=== PATIENT | female | born 1995 | race Caucasian/White ===

== ENCOUNTER 2021-01-15 14:12 | Outpatient (CLI) | payer OTHER ==
--- NOTE | 2021-01-15 16:18 | XRAY Report ---
PROCEDURE: Hand 3 View BILAT INDICATIONS: BILATERAL HAND PAIN TECHNIQUE: 3 views of the right and left hand(s) acquired. COMPARISON: None FINDINGS: Bones: No fractures or dislocations. No suspicious bony lesions. No osseous erosive changes. No david nt space narrowing or periarticular osteopenia. Soft tissues: No suspicious soft tissue calcifications. IMPRESSION: No osseous erosive change. Reviewed by: Karey Mack MD, PhD on 01/15/2021 4:17 PM PDT Approved by: Karey Mack MD, PhD on 01/15/2021 4:17 PM PDT Station ID: [id number]
== END 2021-01-15 14:13 | disposition home or self-care (01) ==
LOC: DI 14:12
PROVIDERS: ATTEND Physician Assistant
DX: M79.641 Pain in right hand (principal); M79.642 Pain in left hand

== ENCOUNTER 2021-02-18 12:36 | Outpatient (CLI) | payer OTHER ==
--- NOTE | 2021-02-18 13:15 | XRAY Report ---
PROCEDURE: Ankle 3 View LT INDICATIONS: L ANKLE PX TECHNIQUE: 3 views of the ankle were acquired. COMPARISON: None. FINDINGS: Bones: No fractures or dislocations. Ankle mortise is normally aligned. No suspicious bony lesions . Soft tissues: No tibiotalar joint effusion. Achilles tendon appears normal. IMPRESSION: No significant osseous abnormality. If clinically indicated follow-up radiographs in 10-14 days could be performed. Reviewed by: Nico Davis MD on 02/18/2021 1:13 PM [facility] Approved by: Nico Davis MD on 02/18/2021 1:13 PM [facility] Station ID: [id number]
== END 2021-02-18 23:59 | disposition home or self-care (01) ==
LOC: DI.N 12:36
PROVIDERS: ATTEND Nurse Practitioner
DX: S93.402A Sprain of unspecified ligament of left ankle, initial encounter (principal)

== ENCOUNTER 2021-05-31 10:36 | Emergency (ER) | payer OTHER ==
--- NOTE | 2021-05-31 11:32 | ED Physician Documentation ---
PD HPI HEADACHE - Stated complaint Stated Complaint: SOA/HEAD PX - Chief complaint Chief Complaint: Resp - History obtained from History obtained from: Patient - History of Present Illness Timing - onset: How many days ago (4) Timing - onset during: Light activity Timing - duration: Days (4) Timing - details: Gradual onset (had Moderna COVID vaccine Thursday and developed aches, dyspnea, headache the day after. No hives. Headache and aches have improved reasonably but dyspnea/wheezing persists. NO history of asthma per se. Has had MDI with bronchitis in the past.), Still present Worst headache ever?: No: Worst headache ever? Location: Front Quality: Aching Associated symptoms: Other (main complaint is of dyspnea/wheezing since the vaccine.). No: Fever, Stiff neck, Nausea Contributing factors: Other (symptoms onset day after COVID booster vaccine.). No: Recent illness Review of Systems Constitutional: denies: Fever, Chills Nose: denies: Rhinorrhea / runny nose, Congestion Throat: denies: Sore throat Cardiac: reports: Chest pain / pressure Respiratory: reports: Dyspnea, Wheezing. denies: Cough GI: denies: Nausea, Vomiting, Diarrhea Skin: denies: Rash Neurologic: reports: Generalized weakness. denies: Near syncope PD PAST MEDICAL HISTORY - Past Medical History Cardiovascular: None Respiratory: None, Other (prior spontaneous PTX years ago. ) Endocrine/Autoimmune: None - Present Medications Home Medications: Ambulatory Orders Medication Instructions Recorded Confirmed Albuterol Sulf [Ventolin Hfa 2 - 3 puffs INH Q4HR PRN #1 inhaler 05/31/21 Inhaler] Levonorgestrel-Ethin Estradiol 1 tab PO DAILY 05/31/21 05/31/21 [Leonora-28 Tablet] Levothyroxine Sodium 0.25 mcg PO DAILY 05/31/21 05/31/21 [place] Carbonate 900 mg PO DAILY 05/31/21 05/31/21 Omeprazole 40 mg PO DAILY 05/31/21 05/31/21 Propranolol [Inderal] 90 mg PO DAILY 05/31/21 05/31/21 dexAMETHasone [Decadron] 4 mg PO DAILY #5 tablet 05/31/21 - Allergies Allergies/Adverse Reactions: Allergies Allergy/AdvReac Type Severity Reaction Status Date / Time amoxicillin Allergy Respiratory Verified 05/31/21 10:49 PD ED PE NORMAL - Vitals Vital signs reviewed: Yes - General General: Alert and oriented X 3, No acute distress, Well developed/nourished - HEENT HEENT: Ears normal, Moist mucous membranes, Pharynx benign - Neck Neck: Supple, no meningeal sign, No adenopathy - Cardiac Cardiac: RRR, No murmur - Respiratory Respiratory: No respiratory distress, Clear bilaterally - Abdomen Abdomen: Soft, Non tender - Derm Derm: Normal color, Warm and dry, No rash Results - Vitals Vitals: Vital Signs - 24 hr 05/31/21 05/31/21 05/31/21 10:44 11:07 12:10 Temperature 37.1 C Heart Rate 55 L 48 L 57 L Respiratory 16 18 18 Rate Blood Pressure 137/56 H 105/32 L O2 Saturation 100 99 05/31/21 13:00 Temperature Heart Rate 50 L Respiratory 18 Rate Blood Pressure 107/64 O2 Saturation 99 Oxygen O2 Source Room air - Rads (name of study) chest xray Radiology: Prelim report reviewed (no cardiopulmonary abnormality.), See rad report PD MEDICAL DECISION MAKING - ED course Complexity details: re-evaluated patient (she feels better with ALbuterol MDI. ), considered differential (symptoms time after and relate to getting COVID booster vaccine. ), d/w patient Departure - Departure Disposition: 01 Home, Self Care Clinical Impression: Immunization reaction Qualifiers: Encounter type: initial encounter Qualified Code(s): T50.Z95A - Adverse effect of other vaccines and biological substances, initial encounter Dyspnea Qualifiers: Dyspnea type: shortness of breath Qualified Code(s): R06.02 - Shortness of breath Condition: Stable Record reviewed to determine appropriate education?: Yes Instructions: ED Dyspnea Shortness of Breath Follow-Up: DEVON AVILA PA-C [Primary Care Provider] - Prescriptions: Albuterol Sulf [Ventolin Hfa Inhaler] 2 - 3 puffs INH Q4HR PRN #1 inhaler PRN Reason: Shortness Of Air/Wheezing dexAMETHasone [Decadron] 4 mg PO DAILY #5 tablet Comments: Continue usual medicines. Stay well-hydrated. Tylenol every 4-6 hours as needed for pains. Use an albuterol inhaler 2 to 3 puffs 4 times a day for the next several days to week until you are feeling better. Also Decadron steroid anti-inflammatory daily for the next several days to. This sounds like a inflammatory response to your vaccination causing some reactive airway inflammation. I would anticipate improvement over the next few days. I transmitted your prescription to the [facility] outpatient pharmacy. Discharge Date/Time: 05/31/21 13:18
[2021-05-31] MEDS ORDERED: ALBUTEROL 1 PUFF INH STA (11:49)
[2021-05-31] MEDS ORDERED: CHERRY SYRUP 10 ML UDC PO ONE (11:49)
[2021-05-31] MEDS ORDERED: DEXAMETHASONE 10 MG/ML VIAL PO STA (11:49)
[2021-05-31] MEDS ORDERED: ACETAMINOPHEN 325 MG TABLET PO STA (11:49)
--- NOTE | 2021-05-31 12:33 | XRAY Report ---
PROCEDURE: Chest 1 View X-Ray INDICATIONS: dyspnea for 4 days TECHNIQUE: One view of the chest was acquired. COMPARISON: None. FINDINGS: SUPPORT DEVICES: None. LUNGS/PLEURA: No focal consolidation, pleural effusion or space-occupying pneumothorax. MEDIASTINUM: The cardiomediastinal silhouette is within normal limits. BONES/SOFT TISSUES: No acute abnormality. Dextrocurvature of the thoracic spine. IMPRESSION: 1.No acute cardiopulmonary abnormality. Reviewed by: Dylon Travis MD on 05/31/2021 12:32 PM [facility] Approved by: Dylon Travis MD on 05/31/2021 12:32 PM [facility] Station ID: [id number]
[2021-05-31 13:03] VITALS: BP 107/64
== END 2021-05-31 13:18 | disposition home or self-care (01) ==
LOC: ED 10:36
DX: T88.1XXA Other complications following immunization, not elsewhere classified, initial encounter (principal); R51.9 Headache, unspecified; R06.09 Other forms of dyspnea; M79.10 Myalgia, unspecified site
CPT/HCPCS: 71045; 94664; 99282; 99283; A9270

== ENCOUNTER 2021-08-17 13:49 | Emergency (ER) | payer OTHER ==
[2021-08-17] MEDS ORDERED: ACETAMINOPHEN 500 MG TABLET PO STA (14:02)
[2021-08-17] MEDS ORDERED: HYDROcod/ACETAM 5/325 MG TABLET PO STA (14:02)
--- NOTE | 2021-08-17 14:06 | ED Physician Documentation ---
PD HPI UPPER EXT INJURY - Stated complaint Stated Complaint: L SHOULDER PAIN/LUMP - History obtained from History obtained from: Patient, Family (mom) - Additonal information Additional information: 26-year-old woman with history of Tarlov cysts and DHEA-S abnormality presents with left shoulder pain of days duration with a mass in the supraclavicular area and today pain radiating into the left arm. There was no injury. She denies night sweats. She has had unintentional weight gain recently. Review of Systems Ten Systems: 10 systems reviewed and negative Constitutional: reports: Fatigue (x 6 months). denies: Fever, Chills, Myalgias, Weight Loss, Sweats Nose: denies: Rhinorrhea / runny nose, Congestion GI: reports: Reviewed and negative PD PAST MEDICAL HISTORY - Past Medical History Cardiovascular: None Respiratory: None, Other (prior spontaneous PTX years ago. ) Endocrine/Autoimmune: None - Present Medications Home Medications: Ambulatory Orders Medication Instructions Recorded Confirmed Albuterol Sulf [Ventolin Hfa 2 - 3 puffs INH Q4HR PRN #1 inhaler 05/31/21 08/17/21 Inhaler] Levonorgestrel-Ethin Estradiol 1 tab PO DAILY 05/31/21 08/17/21 [Leonora-28 Tablet] Levothyroxine Sodium 0.25 mcg PO DAILY 05/31/21 08/17/21 [place] Carbonate 900 mg PO QPM 05/31/21 08/17/21 Omeprazole 40 mg PO DAILY 05/31/21 08/17/21 Propranolol [Inderal] 90 mg PO BID 05/31/21 08/17/21 HYDROcod/ACETAM 5/325 [Raymond 5/325] 1 - 2 tab PO Q6H PRN #15 tablet 08/17/21 - Allergies Allergies/Adverse Reactions: Allergies Allergy/AdvReac Type Severity Reaction Status Date / Time amoxicillin Allergy Respiratory Verified 05/31/21 10:49 - Family History Family history: reports: Non contributory PD ED PE NORMAL - Vitals Vital signs reviewed: Yes - General General: Alert and oriented X 3, No acute distress - HEENT HEENT: PERRL, EOMI - Neck Neck: Supple, no meningeal sign, No bony TTP, Other (She appears to have supraclavicular masses bilaterally, left worse than right which are tender. The shoulder itself is nontender.) - Cardiac Cardiac: RRR, No murmur - Respiratory Respiratory: No respiratory distress, Clear bilaterally - Abdomen Abdomen: Non tender - Extremities Extremities: No deformity, No tenderness to palpate, No edema, No calf tenderness / cord, Other (Unable to range the shoulder more than about 90 degrees abduction due to pain) - Neuro Neuro: Alert and oriented X 3, Normal speech Eye Opening: Spontaneous Motor: Obeys Commands Verbal: Oriented GCS Score: 15 - Psych Psych: Normal mood Results - Vitals Vitals: Vital Signs - 24 hr 08/17/21 13:50 Temperature 37.4 C Heart Rate 60 Respiratory 20 Rate Blood Pressure 137/74 H O2 Saturation 100 Oxygen O2 Source Room air - Labs Labs: Laboratory Tests 08/17/21 08/17/21 08/17/21 14:17 14:17 14:17 WBC 10.4 RBC 4.21 Hgb 13.7 Hct 42.6 MCV 101.2 H MCH 32.5 H MCHC 32.2 RDW 11.9 L Plt Count 335 MPV 10.6 Neut # (Auto) 7.4 H Lymph # (Auto) 2.0 [place] # (Auto) 0.8 Eos # (Auto) 0.1 Baso # (Auto) 0.1 Absolute Nucleated RBC 0.00 Nucleated RBC % 0.0 Sodium 137 Potassium 4.4 Chloride 101 Carbon Dioxide 25 Anion Gap 11.0 BUN 13 Creatinine 1.0 Estimated GFR (MDRD) 66 L Glucose 114 H Calcium 9.9 Total Bilirubin 0.8 AST 25 ALT 17 Alkaline Phosphatase 43 Total Protein 7.9 Albumin 4.1 Globulin 3.8 Albumin/Globulin Ratio 1.1 Urine Color Urine Clarity Urine pH Ur Specific [place] Urine Protein Urine Glucose (UA) Urine Ketones Urine Occult Blood Urine Nitrite Urine Bilirubin Urine Urobilinogen Ur Leukocyte Esterase Ur Microscopic Review Urine Culture Comments Urine HCG, Qual Last Dose Date UNKNOWN Last Dose Time UNKNOWN Keddie 0.93 08/17/21 14:37 WBC RBC Hgb Hct MCV MCH MCHC RDW Plt Count MPV Neut # (Auto) Lymph # (Auto) [place] # (Auto) Eos # (Auto) Baso # (Auto) Absolute Nucleated RBC Nucleated RBC % Sodium Potassium Chloride Carbon Dioxide Anion Gap BUN Creatinine Estimated GFR (MDRD) Glucose Calcium Total Bilirubin AST ALT Alkaline Phosphatase Total Protein Albumin Globulin Albumin/Globulin Ratio Urine Color YELLOW Urine Clarity CLEAR Urine pH 6.5 Ur Specific [place] <=1.005 Urine Protein NEGATIVE Urine Glucose (UA) NEGATIVE Urine Ketones NEGATIVE Urine Occult Blood NEGATIVE Urine Nitrite NEGATIVE Urine Bilirubin NEGATIVE Urine Urobilinogen 0.2 (NORMAL) Ur Leukocyte Esterase NEGATIVE Ur Microscopic Review NOT INDICATED Urine Culture Comments NOT INDICATED Urine HCG, Qual NEGATIVE Last Dose Date Last Dose Time Keddie PD MEDICAL DECISION MAKING - ED course ED course: She had prominent supraclavicular musculature or masses. The concern would be for lymphoma and an ultrasound was done without evidence of pathologic ad enopathy. Ultrasound and labs were okay to so presume she just has prominent musculature there and I personally ultrasounded the area to and it just looks like normal subcutaneous tissue. The patient and family were counseled as to the diagnosis and need for follow- up. I counseled the patient with regard to signs and symptoms that would necessitate an urgent reevaluation in the emergency department. They understand they are welcome to return at any time if worse or if not improving as expected. This document was made in part using voice recognition software. While efforts are made to proofread this documents, sound alike and grammatical errors may occur. Departure - Departure Disposition: Home, Self Care Clinical Impression: Shoulder pain, Mass of shoulder region Condition: Good Record reviewed to determine appropriate education?: Yes Instructions: ED Strain Muscle Ext Prescriptions: HYDROcod/ACETAM 5/325 [Raymond 5/325] 1 - 2 tab PO Q6H PRN #15 tablet PRN Reason: Pain Comments: I sent your prescription electronically to [facility] in [place]. Follow-up with your primary care physician this week for recheck. Rest assured that no pathologic lymph nodes were noted on your ultrasound and your lab work is pretty normal with a lithium level of 0.93 which is right where it should be. I am prescribing a short course of narcotic pain medication for you. These are potentially dangerous and addictive medications that should be used carefully. These medications may constipate you. Take an dtrd-ctp-uuxibhz stool softener (docusate) twice daily with plenty of water while taking these medications. If you go 24 hours without a bowel movement, take rqhq-jwn-tyjglhl miralax, per package instructions. Do not drink or drive while taking these medications. If you received narcotic or sedating medications while in the emergency department, do not drive for 24 hours. Store this medication in a safe, secure place and out of reach of children. It is a violation of federal law to give or sell this medication to another person or to use in a manner other than prescribed. The ED will not refill narcotic prescriptions, including prescriptions lost or stolen. To dispose of unwanted medications: 1. [facility] at [address] in [place] has a medication drop box. They accept prescription medications (in pil l form) Thursday through Thursday 9:00 a.m. to 5:00 p.m. 2. [facility] [employer] [facility] accepts prescription medications (in pill form only) for disposal year round. Call for more information. 3. Contact the [facility] for the next [facility] sponsored prescription drug collection event. , [phone], or [phone]; Note that many narcotic pain relievers also contain Tylenol/acetaminophen. Please ensure that your total dose of acetaminophen from all sources does not exceed 3 g (3000 mg) per day. Discharge Date/Time: 08/17/21 15:38
[2021-08-17 14:09] VITALS: BP 137/74
[2021-08-17 14:32] LABS: BASOPHILS # (AUTO) 0.1 10^3/uL (0.0-0.1); BASOPHILS % (AUTO) 0.6 %; EOSINOPHILS # (AUTO) 0.1 10^3/uL (0.0-0.7); EOSINOPHILS % (AUTO) 1.3 %; HCT - HEMATOCRIT 42.6 % (37.0-47.0); HGB - HEMOGLOBIN 13.7 g/dL (12.0-16.0); LYMPHOCYTES % (AUTO) 19.1 %; MEAN CORPUSCULAR HEMOGLOBIN 32.5 pg (27.0-31.0); MEAN CORPUSCULAR HGB CONC 32.2 g/dL (32.0-36.0); MEAN CORPUSCULAR VOLUME 101.2 fL (81.0-99.0); MEAN PLATELET VOLUME 10.6 fL (7.9-10.8); MONOCYTES # (AUTO) 0.8 10^3/uL (0.0-1.0); MONOCYTES % (AUTO) 7.2 %; NEUTROPHILS # (AUTO) 7.4 10^3/uL (1.5-6.6); NEUTROPHILS % (AUTO) 71.5 %; PLT - PLATELET COUNT 335 10^3/uL (130-450); RED BLOOD COUNT 4.21 10^6/uL (4.20-5.40); RED CELL DISTRIBUTION WIDTH 11.9 % (12.0-15.0); WHITE BLOOD COUNT 10.4 x10^3/uL (4.8-10.8)
[2021-08-17 14:42] LABS: ALBUMIN 4.1 g/dL (3.2-5.5); ALBUMIN/GLOBULIN RATIO 1.1 (1.0-2.2); BILIRUBIN,TOTAL 0.8 mg/dL (0.2-1.0); CALCIUM 9.9 mg/dL (8.5-10.3); POTASSIUM 4.4 mmol/L (3.5-5.0); TOTAL PROTEIN 7.9 g/dL (6.7-8.2)
[2021-08-17 14:50] LABS: BILIRUBIN,URINE NEGATIVE (NEGATIVE); GLUCOSE, URINE (UA) NEGATIVE (NEGATIVE); KETONES,URINE (UA) NEGATIVE (NEGATIVE); LEUKOCYTE ESTERASE, URINE NEGATIVE (NEGATIVE); NITRITE,URINE NEGATIVE (NEGATIVE); OCCULT BLOOD,URINE NEGATIVE (NEGATIVE); PH,URINE 6.5 PH (5.0-7.5); PROTEIN,URINE NEGATIVE (NEGATIVE); UROBILINOGEN,URINE 0.2 (NORMAL) E.U./dL (NORMAL)
--- OUTSIDE RECORDS SUMMARY | 2021-08-17 14:54 | EXTERNAL MEDICAL SUMMARY RPT | Continuity of Care Document ---
:1995 Author Organization [facility] Address [address] [place] [address] Phone Care Team Providers Name Role Phone Morenita Fregoso Unavailable Unavailable Allergies No information. Encounters No information. Medications No information. Problems date description facility [id number] Other signs and symptoms in [facility] [id number] [facility] [id number] Other signs and symptoms in [facility] [id number] [facility] Results No information.
--- NOTE | 2021-08-17 14:58 | XRAY Report ---
PROCEDURE: Chest 2 View X-Ray INDICATIONS: Shoulder pain TECHNIQUE: 2 view(s) of the chest. COMPARISON: None. FINDINGS: Surgical changes and devices: None. Lungs and pleura: No pleural effusions or pneumothorax. Lungs are clear. Mediastinum: Mediastinal contours are normal. Heart size is normal. Bones and chest wall: No suspicious bony abnormalities. Soft tissues appear unremarkable. Convex r ight thoracolumbar scoliosis IMPRESSION: No acute cardiopulmonary findings Thoracolumbar dextroscoliosis Reviewed by: Chace Ureña MD on 08/17/2021 1:56 PM [facility] Approved by: Chace Ureña MD on 08/17/2021 1:56 PM [facility] Station ID: [id number]
--- NOTE | 2021-08-17 15:00 | XRAY Report ---
PROCEDURE: Neck Soft Tissue INDICATIONS: shoulder pain/supraclavicular mass, ? adenopathy TECHNIQUE: 2 views of the neck were acquired. Palpable lesion in the left supraclavicular fossa perf ormed with a BB marker on the skin COMPARISON: None FINDINGS: Airway: The airway appears patent. Soft tissues: Prevertebral soft tissues are normal in thickness. The epiglottis and aryepiglottic f olds appear normal. No soft tissue gas. Bones: No suspicious bony lesions. Visualized cervical spine is normally aligned. There is reversa l of normal cervical lordosis. IMPRESSION: Reversal of normal cervical lordosis may related to muscle spasm or positioning. No radiographic abnormality corresponds with marked palpable lesion Reviewed by: Chace Ureña MD on 08/17/2021 1:59 PM [facility] Approved by: Chace Ureña MD on 08/17/2021 1:59 PM [facility] Station ID: [id number]
[2021-08-17 15:04] LABS: CLARITY,URINE CLEAR (CLEAR); HCG UR QUAL NEGATIVE
[2021-08-17 15:04] LABS: LITHIUM 0.93 mmol/L
--- NOTE | 2021-08-17 16:28 | Ultrasound Report ---
PROCEDURE: Ext Limited Non Vascular INDICATIONS: supraclavicular palpable abnormality TECHNIQUE: Real-time scanning was performed of the left supraclavicular fossa, with image documentat ion. COMPARISON: None. FINDINGS: Pelvic adenopathy corresponds with the 2 lymph nodes at the area of concern. The first and measures and 9 x 5 x 8 mm, and the second measures 9 x 5 x 4 mm. Both have a preserved fatty hilum a nd appropriate vascularity. IMPRESSION: Normal-appearing supraclavicular lymph nodes. Consider follow-up contrast CT neck clinical concern pe rsists Reviewed by: Chace Ureña MD on 08/17/2021 3:27 PM [facility] Approved by: Chace Ureña MD on 08/17/2021 3:27 PM [facility] Station ID: [id number]
== END 2021-08-17 15:38 | disposition home or self-care (01) ==
LOC: ED 13:49
DX: R22.1 Localized swelling, mass and lump, neck (principal)
CPT/HCPCS: 36415; 70360; 71046; 76882; 80053; 80178; 81003; 81025; 85025; 99282; 99284; A9270; 81001; 87086

== ENCOUNTER 2021-12-21 11:06 | Emergency (ER) | payer OTHER ==
[2021-12-21] MEDS ORDERED: SODIUM CHLORIDE 0.9% 1,000 ML IV STA (13:02)
[2021-12-21] MEDS ORDERED: METOCLOPRAMIDE 10 MG/2 ML VIAL IVP STA (13:02)
[2021-12-21] MEDS ORDERED: HYDROmorphone 1 MG/ML CARPUJECT IVP STA (13:02)
--- NOTE | 2021-12-21 13:03 | ED Physician Documentation ---
PD HPI HEADACHE - Stated complaint Stated Complaint: TENSION HEADACHE - Chief complaint Chief Complaint: Neuro - History obtained from History obtained from: Patient, Family - Additional information Additional information: She had a CT myelogram done at [facility] 3 days ago. About an hour after the procedure she developed kind of a global frontal headache that is much worse with upright position and better in supine position. Its associated with mild light sensitivity. She has tried multiple things for it including but not limited to Tylenol, ibuprofen, naproxen, baclofen, hydrocodone which were insufficient. She denies fevers or chills. No possibility of . She is here with mom. Review of Systems Constitutional: denies: Fever, Chills Nose: denies: Rhinorrhea / runny nose, Congestion Throat: denies: Sore throat Cardiac: denies: Chest pain / pressure, Palpitations Respiratory: denies: Dyspnea, Cough PD PAST MEDICAL HISTORY - Past Medical History Cardiovascular: None Respiratory: None, Other (prior spontaneous PTX years ago. ) Endocrine/Autoimmune: None - Present Medications Home Medications: Ambulatory Orders Medication Instructions Recorded Confirmed Albuterol Sulf [Ventolin Hfa 2 - 3 puffs INH Q4HR PRN #1 inhaler 05/31/21 08/17/21 Inhaler] Levonorgestrel-Ethin Estradiol 1 tab PO DAILY 05/31/21 08/17/21 [Leonora-28 Tablet] Levothyroxine Sodium 0.25 mcg PO DAILY 05/31/21 08/17/21 [place] Carbonate 900 mg PO QPM 05/31/21 08/17/21 Omeprazole 40 mg PO DAILY 05/31/21 08/17/21 Propranolol [Inderal] 90 mg PO BID 05/31/21 08/17/21 HYDROcod/ACETAM 5/325 [[place] 5/325] 1 - 2 tab PO Q6H PRN #15 tablet 08/17/21 - Allergies Allergies/Adverse Reactions: Allergies Allergy/AdvReac Type Severity Reaction Status Date / Time amoxicillin Allergy Respiratory Verified 12/21/21 11:27 PD ED PE NORMAL - Vitals Vital signs reviewed: Yes - General General: Alert and oriented X 3, No acute distress - HEENT HEENT: PERRL, EOMI - Neck Neck: Supple, no meningeal sign, No bony TTP - Cardiac Cardiac: RRR, No murmur - Respiratory Respiratory: No respiratory distress, Clear bilaterally - Abdomen Abdomen: Non tender - Back Back: No CVA TTP, No spinal TTP - Derm Derm: Normal color, Warm and dry - Extremities Extremities: No edema, No calf tenderness / cord - Neuro Neuro: Alert and oriented X 3, No motor deficit, No sensory deficit, Normal spee ch Eye Opening: Spontaneous Motor: Obeys Commands Verbal: Oriented GCS Score: 15 Results - Vitals Vitals: Vital Signs - 24 hr 12/21/21 11:25 Temperature 36.7 C Heart Rate 50 L Respiratory 20 Rate Blood Pressure 118/62 O2 Saturation 99 Oxygen O2 Source Room air - Labs Labs: Laboratory Tests 12/21/21 12/21/21 12/21/21 13:25 13:25 13:25 WBC 11.1 H RBC 4.11 L Hgb 13.4 Hct 40.2 MCV 97.8 MCH 32.6 H MCHC 33.3 RDW 11.6 L Plt Count 252 MPV 10.7 Neut # (Auto) 8.3 H Lymph # (Auto) 1.9 [place] # (Auto) 0.7 Eos # (Auto) 0.1 Baso # (Auto) 0.0 Absolute Nucleated RBC 0.00 Nucleated RBC % 0.0 PT 11.3 INR 1.0 Sodium 134 L Potassium 4.5 Chloride 103 Carbon Dioxide 22 Anion Gap 9.0 BUN 10 Creatinine 0.7 Estimated GFR (MDRD) 100 Glucose 106 H Calcium 9.7 PD MEDICAL DECISION MAKING - ED course ED course: 26-year-old woman presents with a spinal headache after a CT myelogram. Discussed with her that I would be happy to call our content designer for consideration of blood patch but given the slight risks associated with blood patch, reasonable to trial some IV meds and hydration first and she is very agreeable to that. After administration of 1 mg of IV Dilaudid, 10 mg of IV Reglan, and 1 L of fluid her headache was all gone. Departure - Departure Disposition: 01 Home, Self Care Clinical Impression: Spinal headache Condition: Good Record reviewed to determine appropriate education?: Yes Instructions: ED Headache Post Spinal Tap No Patc Comments: Return as needed for new or worsening symptoms.
[2021-12-21 13:30] LABS: BASOPHILS % (AUTO) 0.4 %; EOSINOPHILS # (AUTO) 0.1 10^3/uL (0.0-0.7); HCT - HEMATOCRIT 40.2 % (37.0-47.0); HGB - HEMOGLOBIN 13.4 g/dL (12.0-16.0); LYMPHOCYTES # (AUTO) 1.9 10^3/uL (1.5-3.5); LYMPHOCYTES % (AUTO) 17.2 %; MEAN CORPUSCULAR HEMOGLOBIN 32.6 pg (27.0-31.0); MEAN CORPUSCULAR HGB CONC 33.3 g/dL (32.0-36.0); MEAN CORPUSCULAR VOLUME 97.8 fL (81.0-99.0); MEAN PLATELET VOLUME 10.7 fL (7.9-10.8); MONOCYTES # (AUTO) 0.7 10^3/uL (0.0-1.0); MONOCYTES % (AUTO) 6.5 %; NEUTROPHILS # (AUTO) 8.3 10^3/uL (1.5-6.6); NEUTROPHILS % (AUTO) 74.6 %; PLT - PLATELET COUNT 252 10^3/uL (130-450); RED BLOOD COUNT 4.11 10^6/uL (4.20-5.40); RED CELL DISTRIBUTION WIDTH 11.6 % (12.0-15.0); WHITE BLOOD COUNT 11.1 x10^3/uL (4.8-10.8)
[2021-12-21 13:47] LABS: PT - PROTHROMBIN TIME 11.3 secs (9.9-12.6)
[2021-12-21 13:53] LABS: CALCIUM 9.7 mg/dL (8.5-10.3); CREATININE 0.7 mg/dL (0.4-1.0); POTASSIUM 4.5 mmol/L (3.5-5.0)
[2021-12-21 14:06] VITALS: BP 134/83
== END 2021-12-21 14:28 | disposition home or self-care (01) ==
LOC: ED 11:06
DX: G97.1 Other reaction to spinal and lumbar puncture (principal); G44.89 Other headache syndrome
CPT/HCPCS: 36415; 80048; 85025; 85610; 96361; 96374; 99282; 99284; J1170; J2765

== ENCOUNTER 2021-12-22 15:49 | Emergency (ER) | payer MEDICAID, OTHER ==
--- NOTE | 2021-12-22 16:18 | ED Physician Documentation ---
History of Present Illness - Stated complaint Stated Complaint: HEADACHE - Chief complaint Chief Complaint: Neuro - History obtained from History obtained from: Patient - History of Present Illness Pain level max: 7 Pain level now: 7 - Additonal information Additional information: Patient is a 26-year-old female who presents to the emergency department stating that she had a CT myelogram 4 days ago at [facility]. She has had a continued headache since that time. Seen here yesterday, given IV fluids and pain medication. Headache resolved and she felt better. Today she is continuing to have postural headaches. Worse with standing and sitting, better with lying down. No nausea or vomiting. She is requesting a blood patch today. Review of Systems Constitutional: denies: Fever, Chills GI: denies: Vomiting, Diarrhea : denies: Dysuria Skin: denies: Rash Musculoskeletal: denies: Neck pain, Back pain Neurologic: denies: Focal weakness, Numbness PD PAST MEDICAL HISTORY - Past Medical History Cardiovascular: None Respiratory: None, Other (prior spontaneous PTX years ago. ) Endocrine/Autoimmune: None - Present Medications Home Medications: Ambulatory Orders Medication Instructions Recorded Confirmed Albuterol Sulf [Ventolin Hfa 2 - 3 puffs INH Q4HR PRN #1 inhaler 05/31/21 08/17/21 Inhaler] Levonorgestrel-Ethin Estradiol 1 tab PO DAILY 05/31/21 08/17/21 [Leonora-28 Tablet] Levothyroxine Sodium 0.25 mcg PO DAILY 05/31/21 08/17/21 [place] Carbonate 900 mg PO QPM 05/31/21 08/17/21 Omeprazole 40 mg PO DAILY 05/31/21 08/17/21 Propranolol [Inderal] 90 mg PO BID 05/31/21 08/17/21 HYDROcod/ACETAM 5/325 [[place] 5/325] 1 - 2 tab PO Q6H PRN #15 tablet 08/17/21 - Allergies Allergies/Adverse Reactions: Allergies Allergy/AdvReac Type Severity Reaction Status Date / Time amoxicillin Allergy Respiratory Verified 12/22/21 15:57 PD ED PE NORMAL - Vitals Vital signs reviewed: Yes - General General: Alert and oriented X 3, No acute distress - HEENT HEENT: Atraumatic, PERRL, Moist mucous membranes - Neck Neck: Supple, no meningeal sign, No bony TTP - Cardiac Cardiac: RRR - Respiratory Respiratory: No respiratory distress, Clear bilaterally - Derm Derm: Warm and dry - Extremities Extremities: No edema - Neuro Neuro: Alert and oriented X 3, vp product marketing 2-12 intact, No motor deficit, No sensory deficit, Normal speech - Psych Psych: Normal mood, Normal affect Results - Vitals Vitals: Vital Signs - 24 hr 12/22/21 12/22/21 15:57 16:46 Temperature 36.9 C Heart Rate 50 L 58 L Respiratory 16 16 Rate Blood Pressure 132/77 H 130/69 O2 Saturation 99 100 Oxygen O2 Source Room air PD MEDICAL DECISION MAKING - ED course Complexity details: reviewed old records, considered differential, d/w patient ED course: Patient received blood patch from anesthesia. Headache resolved. Feels much better. We will have her follow-up with her doctor for further care. Patient counseled regarding signs and symptoms for which I believe and urgent re- evaluation would be necessary. Patient with good understanding of and agreement to plan and is comfortable going home at this time This document was made in part using voice recognition software. While efforts are made to proofread this document, sound alike and grammatical errors may occur. Departure - Departure Disposition: 01 Home, Self Care Clinical Impression: Spinal headache Condition: Good Instructions: ED Headache Post Spinal Tap W Patch Follow-Up: DEVON AVILA PA-C [Primary Care Provider] - As Needed Comments: Please follow-up with your doctor as needed for further care. Please return if you worsen.
[2021-12-22 16:48] VITALS: BP 130/69
--- NOTE | 2021-12-22 16:51 | CONSULTATION NOTE ---
Consultation Report: Called by ED physician for patient with post dural puncture headache. She had CT myelogram 4 days ago and has had headache since. Worse when upright, resolves when flat. Discussed placing epidural blood patch. Risks including bleeding, infection, nerve injury and possible worsening of headache. Patient agreed to continue, consent obtained. Patient was placed in a sitting position and her back was prepped with betadine. 3ml of 1% lidocaine was used for skin local at L4-L5. Land andrews were difficult to appreciate due to severe scoliosis. A 17 G. Espocan needle was introduced and loss of resistance obtained at 5cm. 20ml of sterile blood was injected slowly. Needle was removed. Patient reported immediate improvement in headache.
== END 2021-12-22 17:07 | disposition home or self-care (01) ==
LOC: ED 15:49
DX: T88.59XA Other complications of anesthesia, initial encounter (principal); G44.40 Drug-induced headache, not elsewhere classified, not intractable
CPT/HCPCS: 99281; 99282

== ENCOUNTER 2022-01-04 08:27 | Emergency (ER) | payer OTHER, MEDICAID ==
[2022-01-04 08:34] VITALS: BP 144/83
--- NOTE | 2022-01-04 08:52 | ED Physician Documentation ---
PD HPI HEENT - Stated complaint Stated Complaint: EAR PX - Chief complaint Chief Complaint: Heent - History obtained from History obtained from: Patient - Additional information Additional information: Patient is a 26-year-old presenting for evaluation of 3 to 4-day history of right ear pain. Patient reports fullness, achiness in the right ear. Patient recently has had URI symptoms for the past 1-1/2 weeks which have overall improved including nasal congestion. She has taken 2 home COVID test which are negative. Denies cough, difficulty breathing, sore throat, chest pain, abdominal pain, headache. Has not been taking any medications for her symptoms.Reports history of allergy to amoxicillin which included throat swelling. Review of Systems Constitutional: denies: Fever Ears: reports: Ear pain. denies: Drainage/discharge Nose: reports: Congestion (Resolved) Throat: denies: Sore throat Cardiac: denies: Chest pain / pressure Respiratory: denies: Dyspnea, Cough GI: denies: Abdominal Pain, Vomiting Musculoskeletal: denies: Back pain Neurologic: denies: Headache PD PAST MEDICAL HISTORY - Past Medical History Cardiovascular: None Respiratory: None, Other (prior spontaneous PTX years ago. ) Endocrine/Autoimmune: None - Present Medications Home Medications: Ambulatory Orders Medication Instructions Recorded Confirmed Levonorgestrel-Ethin Estradiol 1 tab PO DAILY 05/31/21 01/04/22 [Leonora-28 Tablet] Buspirone HCl 10 mg PO DAILY 01/04/22 01/04/22 Doxycycline Hyclate 100 mg PO BID #14 tab 01/04/22 [place] Carbonate 300 mg PO DAILY 01/04/22 01/04/22 Propranolol ER [Inderal LA] 60 mg PO DAILY 01/04/22 01/04/22 - Allergies Allergies/Adverse Reactions: Allergies Allergy/AdvReac Type Severity Reaction Status Date / Time amoxicillin Allergy Respiratory Verified 01/04/22 08:34 PD ED PE NORMAL - General General: Alert and oriented X 3, No acute distress, Well developed/nourished - HEENT HEENT: Atraumatic, PERRL, Ears normal (Left TM is normal, right TM with Effusion, erythema and bulging, no foreign body; No tenderness over mastoid process), Moist mucous membranes, Pharynx benign (No oral swelling, exudate or erythema) - Neck Neck: Supple, no meningeal sign - Cardiac Cardiac: RRR, No murmur - Respiratory Respiratory: No respiratory distress, Clear bilaterally - Derm Derm: Warm and dry - Extremities Extremities: No edema - Neuro Neuro: Normal speech Results - Vitals Vitals: Vital Signs - 24 hr 01/04/22 08:32 Temperature 36.4 C L Heart Rate 69 Respiratory 16 Rate Blood Pressure 144/83 H O2 Saturation 96 Oxygen O2 Source Room air PD MEDICAL DECISION MAKING - ED course ED course: Pt with R ear pain, exam consistent with acute otitis media. Given history of airway swelling with amoxicillin, pt started on doxycycline. Counseled on return precautions. Departure - Departure Disposition: 01 Home, Self Care Clinical Impression: Right otitis media with effusion Condition: Stable Instructions: ED Otitis Media Acute Adult Prescriptions: Doxycycline Hyclate 100 mg PO BID #14 tab Comments: You appear to have an ear infection of the right ear. Due to your amoxicillin allergy I have prescribed an antibiotic called doxycycline and sent this prescription to [facility] in [place]. Please make sure to complete the course of the antibiotic. If you have any worsening symptoms please consider return to the emergency department. Discharge Date/Time: 01/04/22 09:05
== END 2022-01-04 09:05 | disposition home or self-care (01) ==
LOC: ED 08:27
DX: H65.191 Other acute nonsuppurative otitis media, right ear (principal); Z88.0 Allergy status to penicillin
CPT/HCPCS: 99282

== ENCOUNTER 2022-01-06 10:16 | Emergency (ER) | payer OTHER, MEDICAID ==
[2022-01-06 10:28] VITALS: BP 132/61
[2022-01-06] MEDS ORDERED: predniSONE 20 MG TABLET PO STA (12:08)
--- NOTE | 2022-01-06 12:13 | ED Physician Documentation ---
PD HPI HEENT - Stated complaint Stated Complaint: EAR PX - Chief complaint Chief Complaint: Heent - History obtained from History obtained from: Patient - Additional information Additional information: Patient comes to the emergency department chief complaint of ongoing ear pain after being diagnosed with otitis media a few days ago and started on Zithromax. She states she is on antibiotics and she is just not sure if they are working because her right ear feels just as bad. No fevers or chills. No vertigo or tinnitus. No drainage. No other complaints at this time. Review of Systems Ten Systems: 10 systems reviewed and negative Constitutional: reports: Reviewed and negative Eyes: reports: Reviewed and negative Ears: reports: Ear pain Nose: reports: Reviewed and negative Throat: reports: Reviewed and negative Cardiac: reports: Reviewed and negative Respiratory: reports: Reviewed and negative GI: reports: Reviewed and negative : reports: Reviewed and negative Skin: reports: Reviewed and negative Musculoskeletal: reports: Reviewed and negative Neurologic: reports: Reviewed and negative Psychiatric: reports: Reviewed and negative Endocrine: reports: Reviewed and negative Immunocompromised: reports: Reviewed and negative PD PAST MEDICAL HISTORY - Past Medical History Cardiovascular: None Respiratory: None, Other (prior spontaneous PTX years ago. ) Endocrine/Autoimmune: None - Present Medications Home Medications: Ambulatory Orders Medication Instructions Recorded Confirmed Levonorgestrel-Ethin Estradiol 1 tab PO DAILY 05/31/21 01/04/22 [Leonora-28 Tablet] Azithromycin [Zithromax] 1 tab PO DAILY #6 tablet 01/04/22 Buspirone HCl 10 mg PO DAILY 01/04/22 01/04/22 [place] Carbonate 300 mg PO DAILY 01/04/22 01/04/22 Propranolol ER [Inderal LA] 60 mg PO DAILY 01/04/22 01/04/22 predniSONE [Deltasone] 60 mg PO DAILY 3 Days #9 tablet 01/06/22 - Allergies Allergies/Adverse Reactions: Allergies Allergy/AdvReac Type Severity Reaction Status Date / Time amoxicillin Allergy Respiratory Verified 01/06/22 10:26 - Social History Does the pt smoke?: No Smoking Status: Never smoker PD ED PE NORMAL - Vitals Vital signs reviewed: Yes - General General: Alert and oriented X 3, No acute distress, Well developed/nourished - HEENT HEENT: Atraumatic, PERRL, EOMI, Ears normal, Moist mucous membranes - Neck Neck: Supple, no meningeal sign - Respiratory Respiratory: No respiratory distress - Derm Derm: Normal color, Warm and dry, No rash - Extremities Extremities: No deformity - Neuro Neuro: Alert and oriented X 3, open hearth helper 2-12 intact, Normal speech - Psych Psych: Normal mood, Normal affect Results - Vitals Vitals: Oxygen O2 Source Room air PD MEDICAL DECISION MAKING - ED course Complexity details: considered differential, d/w patient ED course: I discussed with the patient that at this point in time, her ears are actually normal in appearance and she is most likely on the correct antibiotics, assuming that she had an ear infection to begin with. At this point, she is only a few days into the course and should finish it. We have discussed the need for follow-up and the usual indications for return. Departure - Departure Disposition: 01 Home, Self Care Clinical Impression: Acute otalgia Qualifiers: Laterality: right Qualified Code(s): H92.01 - Otalgia, right ear Condition: Stable Instructions: ED Otitis Media Serous Adult Prescriptions: predniSONE [Deltasone] 60 mg PO DAILY 3 Days #9 tablet Comments: At this point in time, your ear exam is actually fairly good. There is no redness, bulging, or thickening of the eardrum. It does appear that you have a little bit of fluid behind the eardrum and this may be the reason for your ear pain. Since you have already started on the antibiotics and this is your third out of 5 days, you should just go ahead and finish the course, as it sounds like your ear did appear infected to begin with. You may take the prednisone as needed. Your prescription has been electronically transmitted to [facility] pharmacy in [place]. Discharge Date/Time: 01/06/22 12:20
== END 2022-01-06 12:20 | disposition home or self-care (01) ==
LOC: ED 10:16
DX: H92.01 Otalgia, right ear (principal)
CPT/HCPCS: 99282; 99284; J7512

== ENCOUNTER 2022-05-18 11:04 | Outpatient (CLI) | payer MEDICAID | END 2022-05-18 23:59 | disposition critical access hospital (66) | LOC: EMS 11:04 | DX: S09.93XA Unspecified injury of face, initial encounter (principal); S50.11XA Contusion of right forearm, initial encounter; V48.5XXA Car driver injured in noncollision transport accident in traffic accident, initial encounter; Y92.413 State road as the place of occurrence of the external cause | CPT/HCPCS: A0425; A0429; A0999 ==

== ENCOUNTER 2022-05-18 11:42 | Emergency (ER) | payer OTHER, MEDICAID ==
[2022-05-18] MEDS ORDERED: KETOROLAC 15 MG/ML VIAL IVP STA (11:51)
[2022-05-18] MEDS ORDERED: BUFFERED LIDOCAINE 10 ML SYRINGE SUBQ STA (11:51)
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
[2022-05-18] MEDS ORDERED: CLINDAMYCIN 150 MG CAPSULE PO STA (12:36)
--- NOTE | 2022-05-18 12:36 | XRAY Report ---
PROCEDURE: Elbow 3 View RT INDICATIONS: elbow inj TECHNIQUE: 3 views of the elbow were acquired. COMPARISON: None FINDINGS: Bones: No fractures or dislocations. No suspicious bony lesions. Soft tissues: No elbow joint effusion. No suspicious soft tissue calcifications. IMPRESSION: Unremarkable elbow plain films. Please correlate with focal tenderness. If there is point tenderness (or other clinical concern for a fracture not seen on these plain films) then please consider a dedicated CT study or a short term fo llow up plain film series for further evaluation. Reviewed by: Hubert Lau MD on 05/18/2022 11:34 AM [facility] Approved by: Hubert Lau MD on 05/18/2022 11:34 AM [facility] Station ID: [id number]
[2022-05-18] MEDS ORDERED: TETANUS/DIPHTHERIA/PERTUSSIS 0.5 ML SYRINGE IM ONE (12:37)
[2022-05-18 13:04] VITALS: BP 160/86
== END 2022-05-18 13:04 | disposition home or self-care (01) ==
LOC: EDUNIT# → ED 11:42
DX: S01.511A Laceration without foreign body of lip, initial encounter (principal); S50.01XA Contusion of right elbow, initial encounter; V47.5XXA Car driver injured in collision with fixed or stationary object in traffic accident, initial encounter; Y93.89 Activity, other specified; Y92.411 Interstate highway as the place of occurrence of the external cause
CPT/HCPCS: 12051; 73080; 90471; 90715; 96374; 99283; 99284; A9270

== ENCOUNTER 2022-07-13 10:40 | Emergency (ER) | payer MEDICAID ==
[2022-07-13 11:51] VITALS: BP 131/64
== END 2022-07-13 12:26 | disposition left against medical advice (07) ==
LOC: ED 10:40
DX: Z53.21 Procedure and treatment not carried out due to patient leaving prior to being seen by health care provider (principal)

== ENCOUNTER 2022-07-24 12:55 | Outpatient (CLI) | payer MEDICAID ==
[2022-07-24 13:36] LABS: CALCIUM 9.8 mg/dL (8.5-10.3); CREATININE 0.7 mg/dL (0.4-1.0)
[2022-07-24 13:53] LABS: LITHIUM 0.81 mmol/L
== END 2022-07-24 12:56 | disposition home or self-care (01) ==
LOC: LAB 12:55
PROVIDERS: ATTEND Internal Medicine
DX: I10 Essential (primary) hypertension (principal); F31.9 Bipolar disorder, unspecified
CPT/HCPCS: 36415; 80048; 80178

== ENCOUNTER 2023-05-07 08:00 | Outpatient (CLI) | payer MEDICAID ==
[2023-05-08 20:39] LABS: CHLAMYDIA TRACHOMATIS DNA NEGATIVE (NEGATIVE); NEISSERIA GONORRHOEAE DNA NEGATIVE (NEGATIVE); TRICHOMONAS VAGINALIS DNA NEGATIVE (NEGATIVE)
== END 2023-05-07 23:59 | disposition home or self-care (01) ==
LOC: LAB.WC 08:00
PROVIDERS: ATTEND Nurse Practitioner
DX: Z11.3 Encounter for screening for infections with a predominantly sexual mode of transmission (principal)
CPT/HCPCS: 87491; 87591; 87661